=== PATIENT | female | born 1955 | race Asian ===

== ENCOUNTER 2019-10-20 16:45 | Observation (INO) ==
[~2019-10-20 16:45] MED LIST: Buffered Lidocaine 1% SYRIN 1 ml INTRADERM ONE; Bupivacaine 0.5% SDV PF 30ML VIAL ONE; Bupivacaine-MPF SPINAL 7.5 MG/ML - 2ML AMP ONE; EPHEDrine (Pressors) 50 MG/ML VIAL ONE; Esmolol 10 MG/ML 10 ML (100 mg) ONE; Glycopyrrolate IV 0.2 MG/ML 1 ML VIAL ONE; Lactated Ringers 1000 ml BAG 1,000 ML IV SCH; Midazolam 2 mg/2 ml VIAL 1 mg/ml 2 ml VIAL (2 mg) ONE; Phenylephrine IV 10 MG/ML 1 ml VIAL ONE; Propofol 10 MG/ML 20 ML BTL ONE; Rocuronium 50 mg VIAL 10 mg/ml 5 ml VIAL (50 mg) ONE; Succinylcholine 200 mg VIAL 20 mg/ml 10 ml VIAL (200 mg) ONE; Vancomycin(*) 1,000 MG in NS 0.9% 250 ml 250 ML IV ONE; fentaNYL 100 mcg/2 ml 50 MCG/ML VIAL ONE
[2019-10-20] MEDS ORDERED: Ondansetron ODT 4 mg TAB 4 MG TAB PO PRN (16:46)
[2019-10-20] MEDS ORDERED: oxyCODONE/Acetamin 5/325 mg TAB PO PRN (16:46)
[2019-10-20] MEDS ORDERED: diPHENhydraMINE IV 50 MG/ML 1 ml VIAL (BENADRYL) IV PRN (16:46)
[2019-10-20] MEDS ORDERED: Magnesium Hydroxide LIQ 30 ML UDC PO PRN (16:46)
[2019-10-20] MEDS ORDERED: diPHENhydraMINE 25 mg TAB PO PRN (16:46)
[2019-10-20] MEDS ORDERED: Lactulose 30 ml UDC PO PRN (16:46)
[2019-10-20] MEDS ORDERED: Ondansetron 4 mg VIAL 2 MG/ML 2 ml VIAL IV PRN (16:46)
[2019-10-20] MEDS ORDERED: Lactated Ringers 1000 ml BAG 1,000 ML IV SCH (17:00)
[2019-10-20] MEDS ORDERED: Dexamethasone IV 4 MG/ML VIAL 1 ml VIAL ONE (17:15)
[2019-10-20] MEDS ORDERED: Sugammadex 500 MG/5 ML 5 ml VIAL IV PUSH ONE (17:15)
[2019-10-20] MEDS ORDERED: Ondansetron 4 mg VIAL 2 MG/ML 2 ml VIAL ONE (17:15)
[2019-10-20] MEDS ORDERED: Naloxone 0.4 mg VIAL 0.4 mg/ml 1 ml VIAL IV PRN (17:38)
[2019-10-20] MEDS ORDERED: oxyCODONE/Acetamin 5/325 mg TAB ONE (18:19)
[2019-10-20] MEDS ORDERED: fentaNYL 100 mcg/2 ml 50 MCG/ML VIAL ONE (18:19)
[2019-10-20] MEDS: fentaNYL 100 mcg/2 ml 50 MCG/ML VIAL IV PRN ×3 (18:21→19:35)
[2019-10-21] MEDS ORDERED: Vancomycin(*) 1,000 MG in NS 0.9% 250 ml 250 ML IVPB ONE
[2019-10-21] MEDS: Mupirocin 2% OINT TUBE TOPICAL SCH ×2 (00:18→08:45)
[2019-10-21] MEDS: Magnesium Hydroxide LIQ 30 ML UDC PO SCH ×2 (00:19→08:45)
[2019-10-21] MEDS: oxyCODONE/Acetamin 5/325 mg TAB PO PRN ×2 (00:31→06:38)
[2019-10-21 05:31] LABS: Hematocrit 34 % (35-47); Hemoglobin 11.8 g/dL (12.0-16.0); Mean Platelet Volume 8.2 fL (7.4-10.4); Platelet Count 205 10^3/uL (150-450)
[2019-10-21 05:46] LABS: BUN/Creatinine Ratio 17.3 (8-20); Calcium 8.6 mg/dL (8.6-10.3); EGFR African American 85.9 (>60)
[2019-10-21] MEDS ORDERED: Vitamin THERAPEUTIC TAB PO SCH (09:00)
[2019-10-21 15:52] VITALS: BP 102/54
== END 2019-10-21 16:15 | disposition home or self-care (01) ==
LOC: INTOOBSV 16:46 → SSU 16:46
PROVIDERS: ADMIT Orthopaedic Surgery Adult Reconstructive Orthopaedic Surgery; ATTEND Orthopaedic Surgery Adult Reconstructive Orthopaedic Surgery

== ENCOUNTER 2023-05-12 11:32 | Observation (INO) ==
[~2023-05-12 11:32] MED LIST changes: -Buffered Lidocaine 1% SYRIN 1 ml INTRADERM ONE; -Bupivacaine 0.5% SDV PF 30ML VIAL ONE; -Bupivacaine-MPF SPINAL 7.5 MG/ML - 2ML AMP ONE; -EPHEDrine (Pressors) 50 MG/ML VIAL ONE; -Esmolol 10 MG/ML 10 ML (100 mg) ONE; -Glycopyrrolate IV 0.2 MG/ML 1 ML VIAL ONE; +HYDROmorphone 1 MG/1 ML SYRINGE IV PRN; -Lactated Ringers 1000 ml BAG 1,000 ML IV SCH; -Midazolam 2 mg/2 ml VIAL 1 mg/ml 2 ml VIAL (2 mg) ONE; +Naloxone 0.4 mg VIAL 0.4 mg/ml 1 ml VIAL IV PRN; +Ondansetron 4 mg VIAL 2 MG/ML 2 ml VIAL IV PRN; -Phenylephrine IV 10 MG/ML 1 ml VIAL ONE; -Propofol 10 MG/ML 20 ML BTL ONE; -Rocuronium 50 mg VIAL 10 mg/ml 5 ml VIAL (50 mg) ONE; -Succinylcholine 200 mg VIAL 20 mg/ml 10 ml VIAL (200 mg) ONE; -Vancomycin(*) 1,000 MG in NS 0.9% 250 ml 250 ML IV ONE; +fentaNYL 100 mcg/2 ml 50 MCG/ML VIAL IV PRN; -fentaNYL 100 mcg/2 ml 50 MCG/ML VIAL ONE
[2023-05-12] MEDS ORDERED: Buffered Lidocaine 1% SYRIN 1 ml ONE (12:18)
[2023-05-12] MEDS ORDERED: Tranexamic Acid 1 GM/100ML BAG 2,000 MG/200 ML BAG IV ONE (12:18)
[2023-05-12] MEDS ORDERED: Midazolam 2 mg/2 ml VIAL 1 mg/ml 2 ml VIAL (2 mg) ONE (12:35)
[2023-05-12] MEDS: Buffered Lidocaine 1% SYRIN 1 ml INTRADERM ONE (12:39)
[2023-05-12] MEDS: Lactated Ringers 1000 ml BAG 1,000 ML IV SCH ×2 (12:40→18:26)
[2023-05-12 12:41] LABS: Rapid COVID-19 Molecular Undetected (Undetected)
[2023-05-12] MEDS: Vancomycin 1000 MG in NS 0.9% 250 ML IVPB ONE (12:42)
[2023-05-12] MEDS ORDERED: ROPIVACAINE 5 MG/ML 30 ML BTL (0.5%) ONE (13:51)
[2023-05-12] MEDS ORDERED: Phenylephrine 40 mcg/mL 10mL (400mcg) SYRINGE ONE (15:02)
[2023-05-12] MEDS ORDERED: Lactulose 30 ml UDC PO PRN (15:35)
[2023-05-12] MEDS ORDERED: Ondansetron ODT 4 mg TAB 4 MG TAB PO PRN (15:35)
[2023-05-12] MEDS ORDERED: Ondansetron 4 mg VIAL 2 MG/ML 2 ml VIAL IV PRN (15:35)
[2023-05-12] MEDS ORDERED: Morphine 2 MG/ML SYRINGE IV PRN (15:35)
[2023-05-12] MEDS ORDERED: Magnesium Hydroxide LIQ 30 ML UDC PO PRN (15:35)
[2023-05-12] MEDS ORDERED: Phenylephrine IV 10 MG/ML 1 ml VIAL ONE (15:54)
[2023-05-12] MEDS: Magnesium Hydroxide LIQ 30 ML UDC PO SCH (21:49)
[2023-05-13] MEDS: Vancomycin 1,000 MG in NS 0.9% 250 ml 250 ML IVPB ONE (01:13)
[2023-05-13 06:32] LABS: Platelet Count 170 10^3/uL (150-450)
[2023-05-13 06:51] LABS: Hematocrit 35.1 % (35-45); Hemoglobin 12.2 g/dL (11.5-14.3); Mean Platelet Volume 8.7 fL (7.5-11.2)
[2023-05-13 06:53] LABS: Calcium 8.7 mg/dL (8.6-10.3); Creatinine, Serum 0.81 mg/dL (0.51-0.95); Potassium 4.2 mmol/L (3.5-5.0)
[2023-05-13] MEDS: Vitamin THERAPEUTIC TAB PO SCH (08:23)
[2023-05-13 13:59] VITALS: BP 108/64
== END 2023-05-13 14:40 | disposition home or self-care (01) ==
LOC: OR 11:32 → SSU 11:32
PROVIDERS: ADMIT Orthopaedic Surgery Adult Reconstructive Orthopaedic Surgery; ATTEND Orthopaedic Surgery Adult Reconstructive Orthopaedic Surgery